=== PATIENT | female | born 1955 | race Two or more races ===

== ENCOUNTER 2024-10-26 04:49 | Inpatient (IN) | payer OTHER ==
[~2024-10-26] VITALS: Ht 162.6 cm; Wt 55.1 kg
[2024-10-26] MEDS: FUROSEMIDE 20 MG/2 ML VIAL IVP ONE ×2 (05:03→06:02)
[2024-10-26] MEDS: NITROGLYCERIN 2% (1 GM=INCH) OINTMENT PACKET TP ONE (05:03)
[2024-10-26 05:12] LABS: BASOPHILS % (AUTO) 0.3 % (0.0-2.0); EOSINOPHILS % (AUTO) 0.1 % (1.0-6.0); HEMATOCRIT 31.1 % (36-46); HEMOGLOBIN 10.1 g/dL (12.0-16.0); LYMPHOCYTES # (AUTO) 0.7 K/uL (1.0-4.8); LYMPHOCYTES % (AUTO) 6.3 % (22.0-44.0); MEAN CORPUSCULAR HEMOGLOBIN 29.9 pg (26.0-34.0); MEAN CORPUSCULAR HGB CONC 32.4 G/dL (31.0-37.0); MEAN CORPUSCULAR VOLUME 92 fL (80-100); MONOCYTES # (AUTO) 0.2 K/uL (0.1-1.0); MONOCYTES % (AUTO) 1.5 % (2.0-9.0); NEUTROPHILS # (AUTO) 10.7 K/uL (1.8-7.7); PLATELET COUNT (AUTO) 237 K/uL (150-450); RED BLOOD CELL COUNT(AUTO) 3.38 MIL/uL (4.00-5.20); RED CELL DISTRIBUTION WIDTH 14.3 % (11.5-14.5); WHITE BLOOD COUNT (AUTO) 11.6 K/uL (4.5-11.0)
[2024-10-26 05:21] LABS: ANION GAP 14 mmol/L (8-16); CALCIUM, TOTAL 8.6 mg/dL (8.8-10.5); CARBON DIOXIDE 19 mmol/L (22-29); CHLORIDE 103 mmol/L (98-107); CREATININE 1.85 mg/dL (0.60-1.30); GLOMERULAR FILTR. RATE CALC 27 mL/min (>60); GLUCOSE,RANDOM 261 mg/dL (70-110); POTASSIUM 4.8 mmol/L (3.5-5.1); SODIUM SERUM 136 mmol/L (136-145); UREA NITROGEN, BLOOD 41 mg/dL (7-18)
[2024-10-26 05:22] LABS: ALBUMIN 3.4 g/dL (3.4-5.0); BILIRUBIN,DIRECT 0.2 mg/dL (0.00-0.20); BILIRUBIN,TOTAL 0.7 mg/dL (0.1-1.0); TOTAL PROTEIN, SERUM 7.1 g/dL (6.4-8.2)
[2024-10-26 05:23] LABS: NEUTROPHILS % (AUTO) 91.8 % (40.0-70.0)
[2024-10-26 05:30] LABS: CREATINE KINASE, TOTAL ONLY 288 U/L (26-192)
[2024-10-26 05:32] LABS: TROPONIN I-HIGH SENSITIVITY 273 ng/L (<51)
[2024-10-26 05:33] LABS: B-TYPE NATRIURETIC PEPTIDE 980 pg/mL (0-100); LACTIC ACID 2.7 mmol/L (0.4-2.0)
[2024-10-26] MEDS: AZITHROMYCIN 500 MG/NS 250 ML IV ONE (05:37)
[2024-10-26] MEDS: CefTRIAXone 1 GM/DEXTROSE 50 ML IV ONE (05:37)
[2024-10-26] MEDS: SODIUM CHLORIDE 0.9% 1,100 ML IV ONE (05:49)
[2024-10-26 07:05] LABS: APPEARANCE,URINE CLEAR (CLEAR); BILIRUBIN,URINE NEGATIVE (NEGATIVE); COLOR,URINE LIGHT YELLOW (YELLOW); GLUCOSE, URINE (UA) TRACE mg/dL (NEGATIVE); KETONES,URINE TRACE mg/dL (NEGATIVE); LEUKOCYTE ESTERASE ,URINE MODERATE (NEGATIVE); NITRATE,URINE NEGATIVE (NEGATIVE); OCCULT BLOOD,URINE TRACE (NEGATIVE); PH,URINE 5.5 (5.0-8.0); PROTEIN,URINE 100-200,SEE CONFIRM mg/dL (NEGATIVE); UROBILINOGEN,URINE <=1.0 mg/dL (<=1.0)
[2024-10-26 07:40] LABS: TROPONIN I-HIGH SENSITIVITY 746 ng/L (<51)
[2024-10-26 07:44] LABS: SULFOSALICYLIC ACID,URINE 2+ (Negative)
[2024-10-26 07:45] LABS: BACTERIA,URINE None Seen /HPF (None Seen); RBC,URINE 0-2 /HPF (0-2)
[2024-10-26] MEDS ORDERED: HEPARIN SODIUM 25000 UNITS/D5W 250 ML IV PRN (08:00)
[2024-10-26] MEDS ORDERED: HEPARIN SODIUM,PORCINE 5,000 UNITS/ML VIAL IVP PRN ×4 (08:00→11:30)
[2024-10-26] MEDS ORDERED: LOSA-382 PO (08:24)
[2024-10-26] MEDS ORDERED: AMLO10TA55 PO (08:24)
[2024-10-26] MEDS ORDERED: ATOR10TA69 PO (08:24)
[2024-10-26] MEDS ORDERED: METF-1211 PO (08:24)
[2024-10-26 08:28] LABS: PROTHROMBIN TIME 10.8 SEC (9.4-11.6)
[2024-10-26 09:41] VITALS: BP 146/75; PULSE 91; RESP 18; TEMP 98; O2SAT 91
[2024-10-26 11:52] VITALS: BP 152/83; PULSE 90; RESP 22; O2SAT 91
[2024-10-26] MEDS: FUROSEMIDE 40 MG/4 ML VIAL IVP ONE (12:08)
[2024-10-26 12:15] LABS: BASOPHILS % (AUTO) 0.2 % (0.0-2.0); EOSINOPHILS % (AUTO) 0 % (1.0-6.0); HEMATOCRIT 32.6 % (36-46); HEMOGLOBIN 10.5 g/dL (12.0-16.0); LYMPHOCYTES # (AUTO) 0.4 K/uL (1.0-4.8); LYMPHOCYTES % (AUTO) 3.6 % (22.0-44.0); MEAN CORPUSCULAR HEMOGLOBIN 29.4 pg (26.0-34.0); MEAN CORPUSCULAR HGB CONC 32.1 G/dL (31.0-37.0); MEAN CORPUSCULAR VOLUME 92 fL (80-100); MONOCYTES # (AUTO) 0.2 K/uL (0.1-1.0); MONOCYTES % (AUTO) 2.1 % (2.0-9.0); NEUTROPHILS # (AUTO) 10.6 K/uL (1.8-7.7); PLATELET COUNT (AUTO) 258 K/uL (150-450); RED BLOOD CELL COUNT(AUTO) 3.56 MIL/uL (4.00-5.20); RED CELL DISTRIBUTION WIDTH 14.1 % (11.5-14.5); WHITE BLOOD COUNT (AUTO) 11.3 K/uL (4.5-11.0)
[2024-10-26 12:19] VITALS: PULSE 85; PULSE 95; RESP 20; O2SAT 85; O2SAT 95
[2024-10-26 12:24] LABS: NEUTROPHILS % (AUTO) 94.1 % (40.0-70.0)
[2024-10-26 12:44] LABS: PROTHROMBIN TIME 10.7 SEC (9.4-11.6)
[2024-10-26] MEDS: HEPARIN SODIUM,PORCINE 5,000 UNITS/ML VIAL IVP ONE (13:53)
[2024-10-26] MEDS: HEPARIN SODIUM 25000 UNITS/D5W 250 ML IV PRN (13:55)
[2024-10-26 14:14] LABS: COVID AG,FIA SOURCE NASAL SWAB
[2024-10-26 14:38] LABS: INFLUENZA TYPE A NEGATIVE FOR TYPE A (NEGATIVE); INFLUENZA TYPE B NEGATIVE FOR TYPE B (NEGATIVE); SARS-COV2 (COVID) ANTIGEN,FIA Negative (Negative)
[2024-10-26 18:35] VITALS: PULSE 86; RESP 29; O2SAT 99
[2024-10-26 20:16] LABS: ABG BASE EXCESS -7.3 mmol/L (-2.0-3.0); ABG CARBOXYHEMOGLOBIN 0.3 % (0.5-1.5); ABG HCO3 19.2 mmol/L (21.0-28.0); ABG METHEMOGLOBIN 0.7 % (0.0-1.5); ABG OXYGEN CONTENT 15.5 mL/dL (15.0-23.0); ABG OXYGEN SATURATION 98.9 % (94.0-98.0); ABG OXYHEMOGLOBIN 97.9 % (94.0-98.0); ABG PCO2 33 mmHg (32.0-45.0); ABG PH 7.363 (7.350-7.450); ABG TOTAL HEMOGLOBIN 11.1 G/dL (12.0-16.0); ALLEN TEST, BLOOD GAS POS; O2 DEVICE,BLOOD GAS BIPAP (ROOM AIR); SITE, BLOOD GAS RT BRACHIAL; SOURCE, BLOOD GAS ARTERIAL; SPONTANEOUS VT, BG 485 ml
[2024-10-26 20:17] LABS: INSPIRATORY TIME, BG 0.9 SEC
[2024-10-26 21:45] VITALS: PULSE 85; RESP 23; O2SAT 100
[2024-10-27] VITALS (11 sets, daily range): BP systolic 123–169; BP diastolic 67–90; PULSE 76–95; RESP 16–27; TEMP 98.8–100.1; O2SAT 94–100
[2024-10-27] MEDS: AmLODIPine BESYLATE 5 MG TABLET PO ONE (05:10)
[2024-10-27] MEDS ORDERED: DEXTROSE 50%-WATER 25 GM/50 ML SYRINGE IVP PRN (05:15)
[2024-10-27 06:21] LABS: GLUCOMETER DEV NAME(LOC) ICUN.5; GLUCOSE,POINT OF CARE 143 MG/DL (70-110)
[2024-10-27 08:00] LABS: BASOPHILS % (AUTO) 0.2 % (0.0-2.0); EOSINOPHILS % (AUTO) 0 % (1.0-6.0); HEMATOCRIT 32.6 % (36-46); HEMOGLOBIN 10.8 g/dL (12.0-16.0); LYMPHOCYTES # (AUTO) 0.8 K/uL (1.0-4.8); LYMPHOCYTES % (AUTO) 5.5 % (22.0-44.0); MEAN CORPUSCULAR HEMOGLOBIN 29.9 pg (26.0-34.0); MEAN CORPUSCULAR HGB CONC 32.9 G/dL (31.0-37.0); MEAN CORPUSCULAR VOLUME 91 fL (80-100); MONOCYTES # (AUTO) 0.7 K/uL (0.1-1.0); MONOCYTES % (AUTO) 4.9 % (2.0-9.0); NEUTROPHILS # (AUTO) 12.9 K/uL (1.8-7.7); PLATELET COUNT (AUTO) 244 K/uL (150-450); RED CELL DISTRIBUTION WIDTH 14.3 % (11.5-14.5); WHITE BLOOD COUNT (AUTO) 14.4 K/uL (4.5-11.0)
[2024-10-27 08:02] LABS: NEUTROPHILS % (AUTO) 89.4 % (40.0-70.0)
[2024-10-27 08:20] LABS: TOTAL PROTEIN, SERUM 6.8 g/dL (6.4-8.2)
[2024-10-27 08:29] LABS: LACTATE DEHYDROGENASE 441 U/L (81-234)
[2024-10-27] MEDS: ETHYL ALCOHOL 62% ANTISEPTIC NASAL SANITIZER 0.6 ML AMPUL NASAL SCH (08:46)
[2024-10-27 08:51] LABS: ANION GAP 10 mmol/L (8-16); CALCIUM, TOTAL 8.6 mg/dL (8.8-10.5); CARBON DIOXIDE 22 mmol/L (22-29); CHLORIDE 105 mmol/L (98-107); GLOMERULAR FILTR. RATE CALC 30 mL/min (>60); GLUCOSE,RANDOM 160 mg/dL (70-110); POTASSIUM 4.2 mmol/L (3.5-5.1); SODIUM SERUM 137 mmol/L (136-145); UREA NITROGEN, BLOOD 41 mg/dL (7-18)
[2024-10-27] MEDS: ACETAMINOPHEN 325 MG TABLET PO PRN (10:19)
[2024-10-27] MEDS: INSULIN LISPRO 100 UNITS/ML SQ PRN (11:39)
[2024-10-27] MEDS: *CLINICAL-LEVOFLOXACIN IVPB DOSING CLINICAL ONE (11:40)
[2024-10-27 12:17] LABS: APPEARANCE,UNSPUN,BODY FLUID CLEAR (CLEAR); SPECIMENTYPE,BODY FLUID PLEURAL
[2024-10-27 12:18] LABS: APPEARANCE,SPUN,BODY FLUID CLEAR (CLEAR); COLOR,BODY FLUID YELLOW (LT YELLOW); TOTAL VOLUME,BODY FLUID 350 mL
[2024-10-27 12:43] LABS: WBC, BODY FLUID 66.66 /cu. mm.
[2024-10-27] MEDS: LEVOFLOXACIN 750 MG/D5% WATER 150 ML IV SCH (12:47)
[2024-10-27 12:56] LABS: GLUCOMETER DEV NAME(LOC) ICUN.5; GLUCOSE,POINT OF CARE 146 MG/DL (70-110)
[2024-10-27] MEDS ORDERED: HydrALAZINE HCL 20 MG/ML VIAL IVP PRN (13:00)
[2024-10-27] MEDS: LinaGLIPtin 5 MG TABLET PO SCH (13:40)
[2024-10-27] MEDS: FUROSEMIDE 40 MG/4 ML VIAL IVP SCH (13:40)
[2024-10-27] MEDS: LOSARTAN POTASSIUM 50 MG TABLET PO SCH (13:40)
[2024-10-27] MEDS: ASPIRIN 81 MG CHEWABLE TABLET PO SCH (13:40)
[2024-10-27] MEDS: ATORVASTATIN CALCIUM 40 MG TABLET PO SCH (13:40)
[2024-10-27] MEDS: METOPROLOL SUCCINATE 25 MG ER TABLET PO SCH (13:40)
[2024-10-27 14:01] LABS: LYMPHOCYTES,BODY FLUID 28 %; NEUTROPHILS,BODY FLUID 8 %
[2024-10-27 14:02] LABS: MONOCYTES,BODY FLUID 22 %
[2024-10-27 14:03] LABS: EOSINOPHILS,BF (ANAL) 0 %; OTHER CELLS,BODY FLUID MESOTHELIALS
[2024-10-27 14:04] LABS: BASOPHILS,BODY FLUID 0 %
[2024-10-27 16:46] LABS: TROPONIN I-HIGH SENSITIVITY 5459 ng/L (<51)
[2024-10-27 17:49] LABS: TROPONIN I-HIGH SENSITIVITY 5274 ng/L (<51)
[2024-10-27] MEDS ORDERED: HydrALAZINE HCL 20 MG/ML VIAL IVP SCH (18:00)
[2024-10-27 20:01] LABS: GLUCOMETER DEV NAME(LOC) ICU.S6; GLUCOSE,POINT OF CARE 186 MG/DL (70-110)
[2024-10-27 21:30] LABS: GLUCOMETER DEV NAME(LOC) ICU.S6; GLUCOSE,POINT OF CARE 186 MG/DL (70-110)
[2024-10-28] VITALS: BP 145/69; PULSE 71; RESP 13; TEMP 99.5; O2SAT 96
[2024-10-28 04:00] VITALS: BP 144/62; PULSE 66; RESP 16; TEMP 99.4; O2SAT 98
[2024-10-28 06:12] LABS: BASOPHILS % (AUTO) 0.6 % (0.0-2.0); EOSINOPHILS % (AUTO) 0.6 % (1.0-6.0); HEMATOCRIT 30.2 % (36-46); HEMOGLOBIN 10.2 g/dL (12.0-16.0); LYMPHOCYTES # (AUTO) 1.2 K/uL (1.0-4.8); LYMPHOCYTES % (AUTO) 13.4 % (22.0-44.0); MEAN CORPUSCULAR HEMOGLOBIN 30.5 pg (26.0-34.0); MEAN CORPUSCULAR HGB CONC 33.8 G/dL (31.0-37.0); MEAN CORPUSCULAR VOLUME 90 fL (80-100); MONOCYTES # (AUTO) 0.5 K/uL (0.1-1.0); MONOCYTES % (AUTO) 5.5 % (2.0-9.0); NEUTROPHILS # (AUTO) 7.4 K/uL (1.8-7.7); NEUTROPHILS % (AUTO) 79.9 % (40.0-70.0); PLATELET COUNT (AUTO) 232 K/uL (150-450); RED BLOOD CELL COUNT(AUTO) 3.35 MIL/uL (4.00-5.20); RED CELL DISTRIBUTION WIDTH 14.3 % (11.5-14.5); WHITE BLOOD COUNT (AUTO) 9.3 K/uL (4.5-11.0)
[2024-10-28 06:34] LABS: ALBUMIN 2.6 g/dL (3.4-5.0); BILIRUBIN,TOTAL 0.6 mg/dL (0.1-1.0); CALCIUM, TOTAL 8.4 mg/dL (8.8-10.5); CREATININE 2.35 mg/dL (0.60-1.30); MAGNESIUM 1.9 mg/dL (1.80-2.40); PHOSPHORUS 3.8 mg/dL (2.5-4.9); POTASSIUM 4.1 mmol/L (3.5-5.1); TOTAL PROTEIN, SERUM 6.5 g/dL (6.4-8.2)
[2024-10-28 07:59] LABS: TROPONIN I-HIGH SENSITIVITY 5899 ng/L (<51)
[2024-10-28 08:00] VITALS: BP 147/73; PULSE 64; RESP 23; TEMP 98.6; O2SAT 97
[2024-10-28] MEDS: FUROSEMIDE 40 MG/4 ML VIAL IVP SCH (08:55)
[2024-10-28 09:42] VITALS: PULSE 77; RESP 16; O2SAT 96
[2024-10-28 12:00] VITALS: BP 128/54; PULSE 70; RESP 18; TEMP 98.8; O2SAT 97
[2024-10-28 13:07] LABS: TOTAL PROTEIN,BODY FLUID,REF 2.3 g/dL
[2024-10-28 16:00] VITALS: BP 133/56; PULSE 67; RESP 12; TEMP 98.9; O2SAT 96
[2024-10-28 17:50] LABS: GLUCOMETER DEV NAME(LOC) ICUN.5; GLUCOSE,POINT OF CARE 284 MG/DL (70-110)
[2024-10-28 19:36] LABS: GLUCOMETER DEV NAME(LOC) ICU.S6; GLUCOSE,POINT OF CARE 121 MG/DL (70-110)
== END 2024-10-28 19:25 | disposition short-term general hospital (02) | DRG 280 ==
LOC: EMS 04:49 → EDH 07:08 → 5N 09:42 → ICUN 14:00 → ICU 10-27 03:25
PROVIDERS: ADMIT Hospitalist; ATTEND Hospitalist
PROC: 5A09357 Assistance with Respiratory Ventilation, Less than 24 Consecutive Hours, Continuous Positive Airway Pressure (ICD-10-PCS; 2024-10-26)
PROC: 0W993ZZ Drainage of Right Pleural Cavity, Percutaneous Approach (ICD-10-PCS; principal; 2024-10-27)
PROC: 5A0935A Assistance with Respiratory Ventilation, Less than 24 Consecutive Hours, High Flow/Velocity Cannula (ICD-10-PCS; 2024-10-27)
DX: I13.0 Hypertensive heart and chronic kidney disease with heart failure and stage 1 through stage 4 chronic kidney disease, or unspecified chronic kidney disease (principal); I50.21 Acute systolic (congestive) heart failure; I21.4 Non-ST elevation (NSTEMI) myocardial infarction; J18.9 Pneumonia, unspecified organism; J96.01 Acute respiratory failure with hypoxia; N17.0 Acute kidney failure with tubular necrosis; J91.8 Pleural effusion in other conditions classified elsewhere; Z20.822 Contact with and (suspected) exposure to COVID-19; I08.1 Rheumatic disorders of both mitral and tricuspid valves; I27.20 Pulmonary hypertension, unspecified; E11.22 Type 2 diabetes mellitus with diabetic chronic kidney disease; E78.5 Hyperlipidemia, unspecified; D64.9 Anemia, unspecified; N18.30 Chronic kidney disease, stage 3 unspecified; I25.10 Atherosclerotic heart disease of native coronary artery without angina pectoris; Z88.1 Allergy status to other antibiotic agents; Z79.84 Long term (current) use of oral hypoglycemic drugs; Z79.899 Other long term (current) drug therapy; Z87.891 Personal history of nicotine dependence
CPT/HCPCS: 32555; 36600; 71045; 71250; 76770; 76942; 80048; 80053; 80076; 81001; 81002; 82271; 82465; 82550; 82570; 82805; 82945; 82962; 83605; 83615; 83735; 83880; 83986; 84100; 84155; 84156; 84157; 84484; 85018; 85025; 85379; 85610; 85730; 87015; 87040; 87075; 87081; 87101; 87205; 87206; 87804; 88108; 88305; 89051; 93005; 93306; 94660; 96365; 96368; 96375; 96376; 99285; G0238; G0378; J0456; J0696; J1644; J1940; J1956; 36415-L1; 36415-TC; 87070